=== PATIENT | male | born 1975 | race Two or more races ===

== ENCOUNTER 2024-11-18 08:10 | Inpatient (IN) | payer OTHER, SELFPAY ==
[2024-11-11 18:06] VITALS: BP 161/99
[2024-11-11 18:34] LABS: Hematocrit 42.5 % (39.0-52.0); Hemoglobin 15.2 g/dL (13.0-18.0); Mean Corp Hgb Conc. 35.8 g/dL (33.0-37.0); Mean Corpuscular Volume 85.7 fL (80.0-94.0); Nucleated Red Blood Cells % 0 % (-); Platelet Count 315 10^3/uL (130-400); Red Cell Dist. Width 13.1 % (11.5-14.5)
[2024-11-11 18:44] LABS: APTT 28.0 Sec (23.4-35.0); INR 0.95; PT 13.1 Sec (11.4-14.6)
[2024-11-11 18:48] LABS: ALT (SGPT) 98 U/L (0-50); AST (SGOT) 52 U/L (17-59); Albumin 5.3 g/dl (3.5-5.0); Alkaline Phosphatase 72 U/L (38-126); Blood Urea Nitrogen 19 mg/dl (9-20); Calcium 9.9 mg/dl (8.4-10.2); Carbon Dioxide 25 mmol/L (22-30); Chloride 106 mmol/L (98-107); Glucose 262 mg/dl (70-99); Potassium 4.1 mmol/L (3.5-5.1); Sodium 138 mmol/L (135-145); Total Protein 8.0 g/dl (6.3-8.2); eGFR > 60.00
[2024-11-11 18:59] LABS: Troponin I < 0.012 ng/ml
[2024-11-11 21:47] VITALS: BMI 35.2
--- NOTE | 2024-11-11 22:16 | ED.GENMED ---
History of Present Illness
General
Chief Complaint: Weakness
Source: patient and family
Time Seen by Provider: 11/11/24 21:56
History of Present Illness
History of Present Illness:
49-year-old male presents emergency department with complaints of numbness in his legs associated with bilateral leg weakness. Patient had a injection in the coccyx area at 9 AM today. He felt generally well and went home. However, by 4 PM he
began to develop these complaints which persisted here. He states that he now needs assistance to walk because of his legs feeling heavy and numb. He denies fever, chills, vomiting. He did have mild nausea. Patient denies any other complaints
such as incontinence, chest pain, shortness of breath, abdominal pain, headache, or other complaints. Patient suffered a work injury in late June resulting in injury to both his tailbone and lumbar spine. He states that since this injury and
particularly since a lumbar injection in early September he has residual numbness in the lateral aspect of his left leg as well as the anterior right thigh. The numbness today appears to be more diffuse in bilateral lower extremities and sometimes feels
like 'fire'
Past History
Past History
ED Past Medical History: HTN and Hypercholesterolemia
ED Past Surgical History: Orthopedic
Social History
Tobacco: Former smoker
Alcohol: Occasional
Drug: None
Personal:
Living: with family
Employment: Employed
Phy Exam
Physical Exam
Physical Exam:
GENERAL: Alert , in no apparent distress
EYE: pupils equal and reactive
NECK: Supple, no significant adenopathy.
ENT: o/p clr, mmm.
CARDIAC: Regular rate and rhythm .
LUNGS: Clear breath sounds bilaterally, no acute respiratory distress, no wheezes/rales/rhonchi
ABDOMEN: Soft, without focal tenderness, no r/g, no cvat
NEUROLOGICAL: Alert and oriented, sensation intact to light touch, decreased motor strength bilateral lower extremities, normal patellar reflexes, cranial nerves II through XII intact, speech clear.
SKIN: Warm and dry, skin intact.
MUSCULOSKELETAL: No edema, well perfused.
PSYCH: Normal and appropriate interaction.
Course
Orders/Labs/Results
Orders:
Orders
11/11/24 18:14
Electrocardiogram (*1) Urgent
Reason for Study: Other
Other Reason for Exam: Possible Stroke
EKG- Treatment ONCE
11/11/24 18:26
Complete Blood Count/With Diff Urgent
Comprehensive Metabolic Panel Urgent
PTT Urgent
Prothrombin Time Urgent
Troponin I Urgent
Abnormal Lab Results
11/11/24
18:26
Abs Immat Gran (auto) 0.1 H 10^3/uL
(0-0.05)
Absolute Neuts (auto) 8.1 H 10^3/uL
(1.4-6.5)
Neutrophils % 84.6 H %
(42.2-75.2)
Lymphocytes % 12.8 L %
(20.5-51.1)
Glucose 262 H mg/dl
(70-99)
ALT 98 H U/L
(0-50)
Albumin 5.3 H g/dl
(3.5-5.0)
11/11/24 18:26
11/11/24 18:26
Vital Signs
Initial and Last Documented VS:
Initial Vital Signs
Temp Pulse Resp BP Pulse Ox
98.2 F 94 16 161/99 92
11/11/24 18:06 11/11/24 18:06 11/11/24 18:06 11/11/24 18:06 11/11/24 18:06
Last Documented Vital Signs
Temp Pulse Resp BP Pulse Ox
98.2 F 86 18 164/90 94
11/11/24 18:06 11/11/24 23:20 11/11/24 23:20 11/11/24 23:20 11/11/24 23:20
*Pulse Oximetry
SaO2: 92
Oxygen Mode of Delivery: Room air
Update Note
Update Note:
Patient presents to the Emergency Department with __numbness and weakness of legs post procedure
Number and Complexity of Problems Addressed at the Encounter
� Chronic conditions affecting care:
� Acute Exacerbation and/or Progression of Chronic Illness:
� Differential Diagnosis includes: But not limited to injection related symptoms, disc herniation, etc.
Amount and/or Complexity of Data to be Reviewed and Analyzed
� I performed an independent evaluation of and my interpretation is:
EKG:
CT:
Xrays:
Laboratory Studies:
Other:
� Review of other/old records reveals:
� Clinical information was obtained by an independent historian: Call placed to patient's surgeon Dr. Mcmanus, aware of history and physical etc. here. He states that he did a sacral coccygeal injection of lidocaine and a half
or percent of Marcaine associated with steroid. He does not suspect that he injected in or near the lumbar area. He is reassured given patient does not have bowel or bladder incontinence, and thinks based on history physical etc. that complication
from injection such as hematoma extremely unlikely, and suspects that symptoms will resolve when meds 'wear off'.
� Prescriptions/Medications Considered but not given:
� Further testing considered but not performed:
Risk of Complications and/or Morbidity or Mortality of Patient Management
� Social determinants of health affecting care:
� Discussion with other providers (PCP, Hospitalists, Consultants, etc):
� Escalation of care including admission/observation vs risk of discharge considered: 11:10 PM patient overall well-appearing. He again denies any 'red flag' signs or symptoms that would suggest impending spinal cord injury,
cauda equina, etc. However, given patient's difficulty standing or walking due to the numbness and heaviness that he is experiencing, recommendation is observation overnight, neurochecks, potential MR in the morning. It is still somewhat unclear
because of patient's symptoms and further workup likely warranted in AM.
ED Attending Note
-
Portions of this chart may have been created with voice recognition software.� Occasional wrong word or��sound alike� substitutions may have occurred due to the inherent limitations of voice recognition software.
Discharge Plan
Departure
Patient Disposition: Admit
Date of Disposition: 11/11/24
Time of Disposition: 23:33
Admit to: Med/Surg
Presentation/result/management discussed w/ accepting MD/DO: Hospitalist
Condition: Good
Discharge Problem:
Weakness
Referrals:
Jane Brothers DO [Family Provider]
Interventions
Interventions:
*Risk Screen - Suicide Last Done: 11/11/24 18:06
*Neglect/Abuse Screening Last Done: 11/11/24 18:06
ED- Cardiac Assessment Last Done: 11/11/24 21:47
ED- Neurological Assessment Last Done: 11/11/24 21:47
ED- Pulmonary Assessment Last Done: 11/11/24 21:47
Discharge Date and Time
Print Language: SWEDISH
[2024-11-11 23:20] VITALS: BP 164/90
--- NOTE | 2024-11-12 | HPS.HSE ---
Family Physician
-
Family Physician: Jane Brothers
Chief Complaint
-
Bilateral lower extremity weakness
History of Present Illness
This is a 49-year-old with past medical history significant for hypertension, hyperlipidemia, obesity, recent traumatic episode toe walk with resultant coccygeal fracture/dislocation as well as lumbar spine herniation who presents to the emergency
department with bilateral lower extremity weakness after coccygeal injection.
Patient had a fall and injury at work in june. Evaluation showed coccygeal fracture/dislocation on x-ray in July 22. He also had herniated disc in the L4-L5 region. Patient reported that he had an MRI in August 16 and had follow-up with pain
specialist. Patient reported that he has previously had a injection of the lower lumbar spine L4-L5 several weeks ago for pain and paresthesias going down the left lower extremity. He had planned injection of the coccygeal spine today. Patient
reported that prior to the procedure he had no weakness in his lower extremity. He has pain in this sacral and coccygeal region. He denies paresthesias in his lower extremities.
Patient reported that the procedure was complicated because he was told that the cannula that was targeted was not injected due to the anatomy and injection was placed in the general area. Patient started having symptoms several hours after
returning home (4 PM). Reports initially had some slurred speech and difficulty getting out his words. This resolved around 7 PM. At the same time he reports nausea but no vomiting. He reports numbness and weakness in his bilateral lower
extremity and is now unable to walk. The numbness today appears to be more diffuse in bilateral lower extremities and sometimes feels like 'fire'
He however has had no strength in his bilateral lower extremity. He reports paresthesias with [id number] as well as painful sensation radiating up his legs bilaterally. Denies any bladder or bowel incontinence. Denies any erythema or
swelling in his lower sacral region.
In the Emergency Department he was afebrile, blood pressure was 160/90 with a pulse of 86 and was satting 94% on room air. ECG showed sinus rhythm at a rate of [address] or T wave changes.
CBC was unremarkable. Electrolytes were all within the normal range except for glucose of 262. BUN and creatinine were normal.
Medical History
Past Medical History
Past Medical History: Reports HTN and Hypercholesterolemia
Past Surgical History: Reports Orthopedic (Cervical spine fusion)
Social History
Tobacco: Former Smoker
Alcohol: None
Drug: None
Personal:
Living: With Family
Employment: Employed
Family History
Family History: Not pertinent
Allergies / Home Medications
Allergies reflects when Allergies were last updated in [facility].
Home Medications with original date entered in [facility]
Allergy/Medication List:
Allergies
Allergy/AdvReac Type Severity Reaction Status Date / Time
silk Allergy Rash Verified 11/11/24 18:06
Gabapentin 300 mg tablet, 300 mg p.o. twice daily
Amlodipine 10 mg tablet, 10 mg p.o. daily
Chlorthalidone 25 mg tablet, 25 mg p.o. daily
Losartan 100 mg tablet, 100 mg p.o. daily
Review of Systems
-
Constitutional: Reports No Symptoms
EENT: Reports No Symptoms
Respiratory: Reports No Symptoms
Cardiac: Reports No Symptoms
Abdomen/GI: Reports No Symptoms
: Reports No Symptoms
Musculoskeletal: Reports No Symptoms
Skin: Reports No Symptoms
Neurological: Reports Weakness and Numbness
Endocrine: Reports No Symptoms
Hematologic/Lymphatic: Reports No Symptoms
Psych: Reports No Symptoms
Physical Exam
Vital Signs
Vital Signs
Temp Pulse Resp BP Pulse Ox
98.2 F 86 18 164/90 94
11/11/24 18:06 11/11/24 23:20 11/11/24 23:20 11/11/24 23:20 11/11/24 23:20
Physical Exam
General: Well Developed, Well Nourished and No Apparent Distress
HEENT: NormoCephalic, Moist mucous membranes and Atraumatic
Respiratory: Clear
Cardiac: S1/S2 and Regular Rhythm; No Murmur or Rub
GI: Soft, Non Tender, Non Distended and Normal Bowel Sounds; No Organomegaly
Rectal: Deferred by Provider
Musculoskeletal: No Clubbing, No Cyanosis and No Edema
Skin: No Rash
Neuro: AO x 3, Cranial Nerves Intact and Other (sensation intact to light touch, decreased motor strength bilateral lower extremities, normal patellar reflexes, cranial nerves II through XII intact, speech clear.)
Hematologic/Lymphatic: No Lymphadenopathy
Psych: Anxious
Laboratory Results
-
11/11/24 18:
11/11/24 18:
Laboratory Results
PT 13.1 Sec (11.4-14.6) 11/11/24 18:
INR 0.95 11/11/24 18:
APTT 28.0 Sec (23.4-35.0) 11/11/24 18:
Total Bilirubin 0.6 mg/dl (0.2-1.3) 11/11/24 18:
AST 52 U/L (17-59) 11/11/24 18:
ALT 98 U/L (0-50) H 11/11/24 18:26
Alkaline Phosphatase 72 U/L (38-126) 11/11/24 18:
Troponin I < 0.012 ng/ml 11/11/24 18:26
Data Reviewed
-
Lab Data: Labs Reviewed by me
Old Records: Reviewed
Impression/Plan
-
IMPRESSION:
49-year-old with recent lower spine injury involving the lumbar spine as well as the tailbone with resultant to level and dislocation/fracture who presents to the emergency department with bilateral lower extremity weakness has left undergoing
injection of lidocaine and Marcaine injected right into the coccyx coccyx/gluteal area, not near the lumbar area. Patient became aware of symptoms of numbness and weakness several hours after injection at around 4 PM. On examination he does have
decreased sensation in the bilateral lower extremity, patellar reflexes are intact. S strength is diminished from the hips down to the toes bilaterally. Labs unremarkable. No other focal deficits. Patient has no bladder or bowel incontinence.
PLAN:
Bilateral lower extremity weakness and parasthesias s/p injection.
- admit to med/surg
- suspect secondary to spinal injection, no subsequent trauma reported.
- neurochecks q 6
- per discussion with Dr. Preston ([facility]), give time for injection to wear off
- if no improvement in 12 to 24 hours will get MRI
- PT evaluation
HTN
- continue home losartan, chlorthalidone and losartan
DVT PPX - lovenox sq
Code status - Full code
[2024-11-12 02:00] VITALS: BP 144/95; BMI 34.7
--- NOTE | 2024-11-12 03:47 | TRANSFER ---
Received pt from ED via stretcher at 0200 dx post procedure complication. Pt was x2 assist from stretcher to bed. Pt reports no pain, but stated B/L legs felt weird, further described as numbness/tingling/burning. Pt refused need for PRN pain
medication. VS WNL. Call lee within reach, be in lowest position.
--- NOTE | 2024-11-12 04:04 | PTCARENOTE ---
Pt refused CPAP for this evening. Care ongoing.
[2024-11-12 07:18] VITALS: BP 147/84
[2024-11-12 07:29] LABS: Hematocrit 40.6 % (39.0-52.0); Hemoglobin 14.4 g/dL (13.0-18.0); Mean Corp Hgb Conc. 35.5 g/dL (33.0-37.0); Mean Corpuscular Volume 85.7 fL (80.0-94.0); Platelet Count 318 10^3/uL (130-400); Red Cell Dist. Width 13.3 % (11.5-14.5)
[2024-11-12] MEDS: COZAAR 100 MG PO (07:41)
[2024-11-12] MEDS: NORVASC 10 MG PO (07:41)
[2024-11-12] MEDS: NEURONTIN 300 MG PO ×2 (07:41→19:55)
[2024-11-12 07:51] LABS: Blood Urea Nitrogen 19 mg/dl (9-20); Calcium 9.7 mg/dl (8.4-10.2); Carbon Dioxide 24 mmol/L (22-30); Chloride 106 mmol/L (98-107); Estimated Creatinine Clearance > 125 ml/min; Glucose 134 mg/dl (70-99); HDL Cholesterol 49 mg/dl; LDL Cholesterol, Calculated 127 mg/dl; Potassium 3.7 mmol/L (3.5-5.1); Sodium 140 mmol/L (135-145); Very Low Density Lipoprotein 19 mg/dl (0-30); eGFR > 60.00
--- NOTE | 2024-11-12 10:46 | CM ---
Reviewed the chart notes and spoke with the patient and spouse at the bedside. The patient is admitted under observational status. The observation letter was provided and explained. The patient had no questions with regards to the letter.
The patient resides with his spouse and children in a bi-level home with six steps to enter. The patient reports on DME is CPAP. The patient reports no VN or SNF in the past. The patient confirmed his pharmacy of choice is the [facility] [address]
continues to be available to patient/family and is monitoring medical plan for needs at discharge.
Plan: Discharge to home when medically stable. No needs anticipated at this time.
[2024-11-12 11:26] LABS: Glycohemoglobin (HgbA1c) 6.0 % (4.0-5.6)
--- NOTE | 2024-11-12 11:27 | W.PN.HOSP.TC ---
Today's Communication/Plan
-
monitor vitals
see plan
Check MRI lumbar spine
Pain control
PT evaluation
Discussed with spouse at bedside
Nonbillable note
Assessment / Plan
Assessment / Plan
General: Well Developed, Well Nourished and No Apparent Distress
HEENT: NormoCephalic, Moist mucous membranes and Atraumatic
Respiratory: Clear
Cardiac: S1/S2 and Regular Rhythm; No Murmur or Rub
GI: Soft, Non Tender, Non Distended and Normal Bowel Sounds
Musculoskeletal:No Edema
Skin: No Rash
Neuro: AO x 3, Cranial Nerves Intact and Other (sensation intact to touch, decreased motor strength bilateral lower extremities, speech clear.)
Psych: Anxious
IMPRESSION:
49-year-old with recent lower spine injury involving the lumbar spine as well as the tailbone with resultant to level and dislocation/fracture who presents to the emergency department with bilateral lower extremity weakness has left undergoing
injection of lidocaine and Marcaine injected right into the coccyx coccyx/gluteal area, not near the lumbar area. Patient became aware of symptoms of numbness and weakness several hours after injection at around 4 PM.
PLAN:
Bilateral lower extremity weakness and paraesthesias s/p injection
History of multiple disc herniation and posterior displacement of the tip of the coccyx
Still has significant weakness. He needs help to lift his lower extremity against gravity. Does have sensation. Per patient [id number] are improving
Given profound weakness we will check MRI
- suspect secondary to spinal injection, no subsequent trauma reported.
- neurochecks q 6
- per discussion with Dr. Mcmanus ([facility]) on admission, he wanted to give time for injection to wear off however check MRI if no improvement in 12-24-hour
- PT evaluation
Leukocytosis likely secondary to injection, stress response
Continue to monitor
HTN
- continue home losartan, chlorthalidone and losartan
Hyperlipidemia
DVT PPX - lovenox sq
Code status - Full code
Anticipated Discharge: Within 24 hours
Subjective/Interval History
-
Date of Service: November 12, 2024
Does have weakness
Objective Data
-
Labs:
Laboratory Results
11/12/24
06:36
WBC 14.2 H
Hgb 14.4
Hct 40.6
Plt Count 318
Sodium 140
Potassium 3.7
Chloride 106
Carbon Dioxide 24
BUN 19
Creatinine 0.7
Glucose 134 H
Calcium 9.7
Vital Signs:
Vital Signs
Temp Pulse Resp BP Pulse Ox
98.2 F 84 17 147/84 96
11/12/24 07:18 11/12/24 07:41 11/12/24 07:18 11/12/24 07:41 11/12/24 07:18
I&O
11/11/24 11/12/24 11/13/24
06:59 06:59 06:59
Intake Total 480 / 480
Output Total 425 / 425
Balance 55 / 55
[2024-11-12 15:12] VITALS: BP 157/97
[2024-11-12] MEDS: TORADOL 10 MG IV (15:52)
[2024-11-12] MEDS: TYLENOL 650 MG PO (15:53)
[2024-11-12] MEDS: VALIUM 2 MG PO ×2 (15:54→19:55)
[2024-11-12 16:31] VITALS: BP 176/117; PULSE 99
[2024-11-12 23:52] VITALS: BP 145/90
[2024-11-13 05:27] LABS: Hematocrit 40.1 % (39.0-52.0); Hemoglobin 14.1 g/dL (13.0-18.0); Mean Corp Hgb Conc. 35.2 g/dL (33.0-37.0); Mean Corpuscular Volume 86.2 fL (80.0-94.0); Nucleated Red Blood Cells % 0 % (-); Platelet Count 278 10^3/uL (130-400); Red Cell Dist. Width 13.3 % (11.5-14.5)
[2024-11-13 05:49] LABS: ALT (SGPT) 74 U/L (0-50); AST (SGOT) 33 U/L (17-59); Albumin 4.3 g/dl (3.5-5.0); Alkaline Phosphatase 49 U/L (38-126); Blood Urea Nitrogen 22 mg/dl (9-20); Calcium 9.2 mg/dl (8.4-10.2); Carbon Dioxide 26 mmol/L (22-30); Chloride 108 mmol/L (98-107); Estimated Creatinine Clearance > 125 ml/min; Glucose 118 mg/dl (70-99); Potassium 3.7 mmol/L (3.5-5.1); Sodium 140 mmol/L (135-145); Total Protein 6.7 g/dl (6.3-8.2); eGFR > 60.00
[2024-11-13 07:45] VITALS: BP 139/83
[2024-11-13] MEDS: VALIUM 2 MG PO ×2 (10:42→19:37)
[2024-11-13] MEDS: COZAAR 100 MG PO (10:42)
[2024-11-13] MEDS: NEURONTIN 300 MG PO ×2 (10:42→19:37)
[2024-11-13] MEDS: NORVASC 10 MG PO (10:43)
--- NOTE | 2024-11-13 11:53 | W.PN.HOSP.TC ---
Today's Communication/Plan
-
Monitor vitals
See plan
Patient appears to be improving, PT to reevaluate today. Patient really wants to go home
Continue with Valium
Pain control
Assessment / Plan
Assessment / Plan
General: Well Developed, Well Nourished and No Apparent Distress
HEENT: NormoCephalic, Moist mucous membranes and Atraumatic
Respiratory: Clear
Cardiac: S1/S2 and Regular Rhythm; No Murmur or Rub
GI: Soft, Non Tender, Non Distended and Normal Bowel Sounds
Musculoskeletal:No Edema
Skin: No Rash
Neuro: AO x 3, Cranial Nerves Intact and Other (sensation intact to touch, decreased motor strength bilateral lower extremities (improving), speech clear.)
Psych: Anxious
IMPRESSION:
49-year-old with recent lower spine injury involving the lumbar spine as well as the tailbone with resultant to level and dislocation/fracture who presents to the emergency department with bilateral lower extremity weakness has left undergoing
injection of lidocaine and Marcaine injected right into the coccyx coccyx/gluteal area, not near the lumbar area. Patient became aware of symptoms of numbness and weakness several hours after injection at around 4 PM.
PLAN:
Bilateral lower extremity weakness and paraesthesias s/p injection
History of multiple disc herniation and posterior displacement of the tip of the coccyx
Weakness has been improving, now able to move his lower extremity
PT yesterday recommended acute rehab, PT to reevaluate today
MRI lumbar showed chronic degenerative changes of the lumbar spine with degenerative disc disease with multilevel disc bulges/disc protrusion and facet arthrosis.
- suspect secondary to spinal injection, no subsequent trauma reported.
-Follows up with Dr. Mcmanus ([facility]) on admission
valium
Leukocytosis likely secondary to injection, stress response
Continue to monitor, improving
HTN
- continue home losartan, chlorthalidone and losartan
Hyperlipidemia
DVT PPX - lovenox sq
Code status - Full code
Anticipated Discharge: Within 24 hours
Subjective/Interval History
-
Date of Service: November 13, 2024
feeling better
Objective Data
-
Labs:
Laboratory Results
11/13/24
05:08
WBC 11.2 H
Hgb 14.1
Hct 40.1
Plt Count 278
Sodium 140
Potassium 3.7
Chloride 108 H
Carbon Dioxide 26
BUN 22 H
Creatinine 0.8
Glucose 118 H
Calcium 9.2
Total Bilirubin 0.5
AST 33
ALT 74 H
Alkaline Phosphatase 49
Vital Signs:
Vital Signs
Temp Pulse Resp BP Pulse Ox
98.4 F 67 16 139/83 95
11/13/24 07:45 11/13/24 07:45 11/13/24 07:45 11/13/24 07:45 11/13/24 07:45
I&O
11/12/24 11/13/24 11/14/24
06:59 06:59 06:59
Intake Total 480 / 480 760 / 760
Output Total 425 / 425 750 / 750 550 / 550
Balance 55 / 55 -750 / -750 210 / 210
[2024-11-13 15:16] VITALS: BP 131/77
--- NOTE | 2024-11-13 19:25 | PTCARENOTE ---
pt will go to SNF for rehab based on PT assessment today. Did notify case management.
[2024-11-13 23:27] VITALS: BP 130/89
[2024-11-14 06:30] LABS: Hematocrit 39.7 % (39.0-52.0); Hemoglobin 14.0 g/dL (13.0-18.0); Mean Corp Hgb Conc. 35.3 g/dL (33.0-37.0); Mean Corpuscular Volume 85.4 fL (80.0-94.0); Nucleated Red Blood Cells % 0 % (-); Platelet Count 274 10^3/uL (130-400); Red Cell Dist. Width 13.2 % (11.5-14.5)
[2024-11-14 06:53] LABS: ALT (SGPT) 78 U/L (0-50); AST (SGOT) 36 U/L (17-59); Albumin 4.2 g/dl (3.5-5.0); Alkaline Phosphatase 54 U/L (38-126); Blood Urea Nitrogen 18 mg/dl (9-20); Calcium 8.9 mg/dl (8.4-10.2); Carbon Dioxide 25 mmol/L (22-30); Chloride 106 mmol/L (98-107); Estimated Creatinine Clearance > 125 ml/min; Glucose 101 mg/dl (70-99); Potassium 3.6 mmol/L (3.5-5.1); Sodium 140 mmol/L (135-145); Total Protein 6.5 g/dl (6.3-8.2); eGFR > 60.00
[2024-11-14 07:45] VITALS: BP 125/81
[2024-11-14] MEDS: COZAAR 100 MG PO (08:17)
[2024-11-14] MEDS: NEURONTIN 300 MG PO ×2 (08:18→20:40)
[2024-11-14] MEDS: VALIUM 2 MG PO ×2 (08:19→20:40)
[2024-11-14] MEDS: NORVASC 10 MG PO (08:20)
--- NOTE | 2024-11-14 10:55 | W.PN.HOSP.TC ---
Today's Communication/Plan
-
Monitor vital signs see plan
PMNR consulted
Needs rehab
Continue with Valium
Symptoms appear to be improving
Assessment / Plan
Assessment / Plan
General: Well Developed, Well Nourished and No Apparent Distress
HEENT: NormoCephalic, Moist mucous membranes and Atraumatic
Respiratory: Clear
Cardiac: S1/S2 and Regular Rhythm; No Murmur or Rub
GI: Soft, Non Tender, Non Distended and Normal Bowel Sounds
Musculoskeletal:No Edema
Skin: No Rash
Neuro: AO x 3, Cranial Nerves Intact and Other (sensation intact to touch, decreased motor strength bilateral lower extremities (improving), speech clear.)
Psych: Anxious
IMPRESSION:
49-year-old with recent lower spine injury involving the lumbar spine as well as the tailbone with resultant to level and dislocation/fracture who presents to the emergency department with bilateral lower extremity weakness has left undergoing
injection of lidocaine and Marcaine injected right into the coccyx coccyx/gluteal area, not near the lumbar area. Patient became aware of symptoms of numbness and weakness several hours after injection at around 4 PM.
PLAN:
Bilateral lower extremity weakness and paraesthesias s/p injection
History of multiple disc herniation and posterior displacement of the tip of the coccyx
Weakness has been improving, now able to move his lower extremity
PT yesterday recommended acute rehab, for rehabilitation caseworker aware. [facility]
MRI lumbar showed chronic degenerative changes of the lumbar spine with degenerative disc disease with multilevel disc bulges/disc protrusion and facet arthrosis.
- suspect secondary to spinal injection, no subsequent trauma reported.
-Follows up with Dr. Mcmanus ([facility]) on admission. Please reach out to him tomorrow to see if there is anything else they can offer
valium BID
Leukocytosis likely secondary to injection, stress response
Continue to monitor, resolved
HTN
- continue home losartan, chlorthalidone and losartan
Hyperlipidemia
DVT PPX - lovenox sq
Code status - Full code
Anticipated Discharge: Within 24 hours
Subjective/Interval History
-
Date of Service: November 14, 2024
Patient denies nausea
Objective Data
-
Labs:
Laboratory Results
11/14/24
04:54
WBC 9.9
Hgb 14.0
Hct 39.7
Plt Count 274
Sodium 140
Potassium 3.6
Chloride 106
Carbon Dioxide 25
BUN 18
Creatinine 0.8
Glucose 101 H
Calcium 8.9
Total Bilirubin 0.4
AST 36
ALT 78 H
Alkaline Phosphatase 54
Vital Signs:
Vital Signs
Temp Pulse Resp BP Pulse Ox
98.6 F 78 16 125/81 97
11/14/24 07:45 11/14/24 07:45 11/14/24 07:45 11/14/24 07:45 11/14/24 07:45
I&O
11/13/24 11/14/24 11/15/24
06:59 06:59 06:59
Intake Total 2140 / 2140
Output Total 750 / 750 1150 / 1150
Balance -750 / -750 990 / 990
[2024-11-14 11:46] VITALS: BP 134/90; BP 144/96; PULSE 78
--- NOTE | 2024-11-14 11:55 | CM ---
Patient recommended for acute rehab. [employer] list provided to patient and . Patient says this is a Workers' Comp case.
[2024-11-14 15:51] VITALS: BP 148/91
[2024-11-14 23:00] VITALS: BP 123/75
[2024-11-15 07:02] LABS: Hematocrit 41.6 % (39.0-52.0); Hemoglobin 14.8 g/dL (13.0-18.0); Mean Corp Hgb Conc. 35.6 g/dL (33.0-37.0); Mean Corpuscular Volume 84.4 fL (80.0-94.0); Nucleated Red Blood Cells % 0 % (-); Platelet Count 267 10^3/uL (130-400); Red Cell Dist. Width 13.2 % (11.5-14.5)
[2024-11-15 07:27] LABS: ALT (SGPT) 90 U/L (0-50); AST (SGOT) 40 U/L (17-59); Albumin 4.3 g/dl (3.5-5.0); Alkaline Phosphatase 54 U/L (38-126); Blood Urea Nitrogen 17 mg/dl (9-20); Calcium 9.2 mg/dl (8.4-10.2); Carbon Dioxide 29 mmol/L (22-30); Chloride 104 mmol/L (98-107); Estimated Creatinine Clearance > 125 ml/min; Glucose 101 mg/dl (70-99); Potassium 3.8 mmol/L (3.5-5.1); Sodium 140 mmol/L (135-145); Total Protein 6.5 g/dl (6.3-8.2); eGFR > 60.00
[2024-11-15 07:40] VITALS: BP 143/83
--- NOTE | 2024-11-15 08:15 | W.PN.HOSP.TC ---
Today's Communication/Plan
-
medically cleared for discharge to rehab once bed available.
Assessment / Plan
Assessment / Plan
IMPRESSION:
49-year-old with recent lower spine injury involving the lumbar spine as well as the tailbone with resultant to level and dislocation/fracture who presents to the emergency department with bilateral lower extremity weakness has left undergoing
injection of lidocaine and Marcaine injected right into the coccyx coccyx/gluteal area, not near the lumbar area. Patient became aware of symptoms of numbness and weakness several hours after injection at around 4 PM.
MRI lumbar showed chronic degenerative changes of the lumbar spine with degenerative disc disease with multilevel disc bulges/disc protrusion and facet arthrosis.
Assessment/plan:
Bilateral lower extremity weakness and paraesthesias s/p injection
History of multiple disc herniation and posterior displacement of the tip of the coccyx
Weakness has been improving, now able to move his lower extremity
PT yesterday recommended acute rehab, for upper caser aware. Dr. [facility]
MRI lumbar showed chronic degenerative changes of the lumbar spine with degenerative disc disease with multilevel disc bulges/disc protrusion and facet arthrosis.
- suspect secondary to spinal injection, no subsequent trauma reported.
-Follows up with Dr. Mcmanus ([facility]) on admission. Please reach out to him tomorrow to see if there is anything else they can offer
valium BID
Leukocytosis likely secondary to injection, stress response
Continue to monitor, resolved
HTN
- continue home losartan, chlorthalidone and losartan
Hyperlipidemia
CODE STATUS: Full code
DVT prophylaxis: Lovenox
Diet: Regular diet.
Disposition: medically cleared for discharge
Communication: Discussed with in the phone.
Total time spent on today's encounter was 55 minutes which included time spent in counseling the patient/family regarding diagnosis and treatment plan as listed above, goals of care, and symptom management. Case was discussed with nursing staff,
specialists, and care coordinators/case management. All labs and imaging personally reviewed by me. Remainder the time spent in detailed review of previous records, lab data, imaging, and other medical provider documentation.
Anticipated Discharge: Today
Subjective/Interval History
-
Date of Service: November 15, 2024
Patient seen and examined at bedside, denies any chest pain or shortness of breath, no abdominal pain, no nausea, no vomiting, no diarrhea or constipation.
Still complaining of bilateral lower extremity weakness.
Pending PMNR ]consult.
Objective Data
-
Labs:
Laboratory Results
11/15/24
06:47
WBC 8.8
Hgb 14.8
Hct 41.6
Plt Count 267
Sodium 140
Potassium 3.8
Chloride 104
Carbon Dioxide 29
BUN 17
Creatinine 0.9
Glucose 101 H
Calcium 9.2
Total Bilirubin 0.6
AST 40
ALT 90 H
Alkaline Phosphatase 54
Vital Signs:
Vital Signs
Temp Pulse Resp BP Pulse Ox
97.9 F 82 17 123/75 96
11/14/24 23:00 11/14/24 23:00 11/14/24 23:00 11/14/24 23:00 11/14/24 23:00
I&O
11/14/24 11/15/24 11/16/24
06:59 06:59 06:59
Intake Total 2140 / 2140 1240 / 1240
Output Total 1150 / 1150
Balance 990 / 990 1240 / 1240
Physical Exam
-
General: Well Developed, Well Nourished, No Apparent Distress and Comfortable
HEENT: Normocephalic, Atraumatic, Moist Mucous Membranes, No Ptosis, PERRLA and Nose Appears Normal
Respiratory: Clear to Auscultation and Non Labored Respirations
Cardiac: Regular Rhythm and S1/S2
Breast: Deferred by me
GI: Soft, Nontender, Nondistended and Normal Bowel Sounds
Genito-urinary: No Costovertebral Tender
Musculoskeletal: No Clubbing, No Cyanosis and No Edema
Skin: Warm
Neuro: Awake, Alert, Oriented, AO x 3 and Other (Left lower extremity weakness.)
Psych: Calm
Data Reviewed
-
Diagnostic Radiology: Image personally visualized and interpreted and Report Reviewed by me
CT Scan: Image personally visualized and interpreted and Report Reviewed by me
Ultrasound: Image personally visualized and interpreted and Report Reviewed by me
MRI: Image personally visualized and interpreted and Report Reviewed by me
Medical Tests (Nuc Med, Echo etc): Image personally visualized and interpreted and Report Reviewed by me
Labs: Labs Reviewed by me
Old Records: Reviewed
[2024-11-15] MEDS: NORVASC 10 MG PO (09:33)
[2024-11-15] MEDS: VALIUM 2 MG PO ×2 (09:34→19:30)
[2024-11-15] MEDS: NEURONTIN 300 MG PO ×2 (09:34→19:30)
[2024-11-15] MEDS: COZAAR 100 MG PO (09:34)
--- NOTE | 2024-11-15 10:30 | CM ---
Reviewed the chart notes and spoke with the patient at the bedside. [employer] is his workers compensation insurance. PMR evaluation pending. Patient provided names for acute rehab. Order of preference: [facility], [facility], and [facility]. continues to
be available to patient/family and is monitoring medical plan for needs at discharge.
Plan: Discharge to [facility] Acute [facility] once medically stable, bed secured, and auth obtained.
[2024-11-15 15:45] VITALS: BP 133/84
--- NOTE | 2024-11-15 17:30 | CON.MD ---
Documented by User: Tessy Baer PA-C 11/15/24 19:31
Consultation - Medical
-
Referring Provider: Maxx Perez
Chief Complaint: Weakness, ambulatory dysfunction
History of Present Illness:�This is a 49-year-old with PMH for (hypertension, hyperlipidemia, obesity), recent traumatic episode of a fall with resultant coccygeal fracture/dislocation as well as lumbar spine herniation who presents to the emergency
department with bilateral lower extremity weakness after coccygeal injection.
Patient had a fall and injury at work in june. Evaluation showed coccygeal fracture/dislocation on x-ray in July 22. He also had herniated disc in the L4-L5 region. Patient reported that he had an MRI in August 16 and had follow-up with pain
specialist. Patient reported that he has previously had a injection of the lower lumbar spine L4-L5 several weeks ago for pain and paresthesias going down the left lower extremity. He had planned injection of the coccygeal spine today. Patient
reported that prior to the procedure he had no weakness in his lower extremity. He has pain in this sacral and coccygeal region. He denies paresthesias in his lower extremities.
Patient reported that the procedure was complicated because he was told that the cannula that was targeted was not injected due to the anatomy and injection was placed in the general area. Patient started having symptoms several hours after
returning home (4 PM). Reports initially had some slurred speech and difficulty getting out his words. This resolved around 7 PM. At the same time he reports nausea but no vomiting. He reports numbness and weakness in his bilateral lower
extremity and is now unable to walk. The numbness today appears to be more diffuse in bilateral lower extremities and sometimes feels like 'fire'
He however has had no strength in his bilateral lower extremity. He reports paresthesias with xgfm-rrn-gpsbsis as well as painful sensation radiating up his legs bilaterally. Denies any bladder or bowel incontinence. Denies any erythema or
swelling in his lower sacral region.
In the Emergency Department he was afebrile, blood pressure was 160/90 with a pulse of 86 and was sat 94% on room air. ECG showed sinus rhythm at a rate of [address] or T wave changes.
CBC was unremarkable. Electrolytes were all within the normal range except for glucose of 262. BUN and creatinine were normal.
Seen at bedside, patient reports improvement in bilateral legs weakness. Denies numbness and tingling at the moment nor lower back pain, but voices sacral/coccyx pain . Sitting exacerbate symptoms. Appetite is good and so is voiding. Denies chest
pain, sob, dizziness, lightheadedness, dysuria, nausea, vomiting, abdominal pain. 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 He reports that he is not able to return home because he will not be able to
maneuver the steps in his bilevel house.
Past Medical History:�hypertension, hyperlipidemia, obesity, lumbar disc herniation, sacral fracture, Left shoulder essential tremors when fatigued.
Procedure History:�cervical fusion, epidural injections
Family History:�Mom-Parkinson Disease, Dad- Heart Disease
�
Social History:�
Functional Level Premorbidly:�Independent with all activities�
Functional Level Currently:�Bed mobility- supervision, ikylokmym-xjynzgnfmsf-ahg assist, ambulated 25 feet x 2 RW- close supervision. Using upper extremities more to steady self with walker.
�
Tobacco:�Denies�
Alcohol:�Denies�
Drug use:�Denies�
�
Lives with:�Family
24-hour assistance available:�
Number of floors:�multi level
# steps to enter:�6+6
# steps to second floor:
Potential First floor set up:�
Driving:�yes
Occupation:�[employer]- on leave due to worker injury
�
�
Allergies:�
Allergy/AdvReac Type Severity Reaction Status Date / Time
silk Allergy Rash Verified 11/11/24 18:06
�
Review of Systems:�
Constitutional: (x) Normal _
Eye: (x) Normal _
Ear/Nose/Throat: (x) Normal _
Respiratory: (x) Normal _
Cardiovascular: (x) Normal _
Gastrointestinal: (x) Normal _
Genitourinary: (x) Normal _
Musculoskeletal: (x) abNormal _bilateral leg weakness, coccyx, sacral pain
Integumentary: (x) Normal _
Neurologic: (x) abNormal _essential tremors affecting left shoulder when fatigued
Psychiatric: (x) Normal _
Endocrine: (x) Normal _
Hematologic/Lymphatic: (x) Normal _
Allergic/Immunologic: (x) Normal _
Medications:�
Active Current Visit Medication List
Category Date Time Status
Acetaminophen [Tylenol] Med 11/12/24 02:01 Active
650 mg PO Q4HPRN PRN
Amlodipine [Norvasc] Med 11/12/24 08:00 Active
10 mg PO DAILY
Bisacodyl [Dulcolax] Med 11/12/24 02:01 Active
10 mg RECTAL [id number] PRN
Chlorthalidone [Hygroton] Med 11/12/24 08:00 Active
25 mg PO DAILY
Diazepam [Valium] Med 11/12/24 14:40 Active
2 mg PO BID
Docusate W/Senna [Senokot-S] Med 11/12/24 02:01 Active
1 tablet PO BIDPRN PRN
Enoxaparin Sodium [Lovenox] Med 11/12/24 18:00 Hold
40 mg SC QPM
Flush (0.9% Sodium Chloride) [Flush (Nss)] Med 11/12/24 03:00 Active
See Dose Instructions IV PER PROTOCOL
Gabapentin [Neurontin] Med 11/12/24 08:00 Active
300 mg PO BID
HYDROmorphone [Dilaudid] Med 11/12/24 02:01 Active
0.5 mg IV Q4HPRN PRN
Ketorolac [Toradol] Med 11/12/24 02:01 Active
10 mg IV Q6HPRN PRN
Losartan [Cozaar] Med 11/12/24 08:00 Active
100 mg PO DAILY
Ondansetron Injectable [Zofran] Med 11/12/24 02:01 Active
4 mg IV Q6HPRN PRN
Polyethylene Glycol Powder [Miralax] Med 11/12/24 02:01 Active
17 grams PO DAILYPRN PRN
�
Vitals:�
Temp Pulse Resp BP Pulse Ox
98.3 F 79 16 133/84 97
11/15/24 15:45 11/15/24 15:45 11/15/24 15:45 11/15/24 15:45 11/15/24 15:45
Height 6 ft 1 in
Actual Weight 119.3 kg
Body Mass Index (BMI) 34.7
�
Physical Exam:�
General Appearance/Observation: Well-developed, well-nourished individual in no apparent distress.�
Pain/Comfort Assessment: sacrum, weakness legs
Mood/Affect: Appropriate�
�
Integumentary/Operative Site:�
�� Pressure Ulcer Evaluation: absent over heels.�
��
�� Other Type of Wound: absent�
��
�
Eyes: Conjunctiva/Lids: normal���� Pupils: pupils equal round and reactive to light and Accommodation�
Ears/Nose/Throat: oral mucosa moist,� throat clear.������������ Lips/Teeth/Gums: normal�
Neck: No muscle spasm or tenderness�
Cardiovascular: Heart: regular, no murmur�
Pulses: dorsalis pedis NT
Respiratory: Respiratory Effort/Chest Expansion: normal������� Auscultation: Clear to auscultation bilaterally�
Gastrointestinal: abdomen not tender, no distension, normal abdominal bowel sounds
Genitourinary: No Chan�
Extremities:�Edema: None�Cyanosis: None�Trophic�changes: None
�
Neurology Exam:
Orientation: Alert, Oriented to self, Time, Place�
Memory: Intact for immediate medical concerns
Comprehension: Intact
Two step command: Intact
Naming: Intact
Cranial Nerves:
�� CNII:�Pupillary light reflex: Intact����Visual Field: Intact
�� CN III, IV, : Extraocular muscles: Intact�
CN V:�Facial Sensation�at�Forehead: Intact,�Maxilla: Intact,�Mandible: Intact
�� CN VII:�Facial movement: Symmetric
�� CN VIII:�Hearing: Normal
�� CN IX/X:�Speech & swallow: Normal,�Position of Uvula: Midline
�� CN XI:�Shoulder shrug: Symmetric
�� CN XII:�Tongue protrusion: Midline
Sensory:
�� Light touch: Intact in bilateral upper and lower extremities
��
Reflexes:
�� Biceps: 1/4 bilaterally
�� Brachioradialis: 1/4 bilaterally
�� Triceps: 1/4 bilaterally
�� Patellar: absent-right, trace-left
�� Achilles: absent-right, left ankle 2/4
�� Babinski: NT
Clonus: None
�� Jamil: Negative bilaterally�
Cerebellar: Dysmetria/Ataxia: NT�
Musculoskeletal:
Motor: (Manual muscle scale 0-5)�
Muscle SA EF WE EE FF FA HF KE DF EHL PF
Right� 5 5 5 5 5 4 4 4 4 4
Left 5 5 5 5 5 4 4 4 4 4
�
Tone: Normal in all extremities�
Range of Motion: Passively within normal limits in all extremities�
�
Lab Results:
Labs
WBC 8.8 10^3/uL (4.8-10.8) 11/15/24 06:47
RBC 4.93 10^6/uL (4.70-6.10) 11/15/24 06:47
Hgb 14.8 g/dL (13.0-18.0) 11/15/24 06:47
Hct 41.6 % (39.0-52.0) 11/15/24 06:47
MCV 84.4 fL (80.0-94.0) 11/15/24 06:47
MCH 30.0 pg (27.0-31.0) 11/15/24 06:47
MCHC 35.6 g/dL (33.0-37.0) 11/15/24 06:47
RDW 13.2 % (11.5-14.5) 11/15/24 06:47
Plt Count 267 10^3/uL (130-400) 11/15/24 06:47
MPV 8.7 fL (7.4-10.4) 11/15/24 06:47
Abs Immat Gran (auto) 0.1 10^3/uL (0-0.05) H 11/15/24 06:47
Absolute Neuts (auto) 4.8 10^3/uL (1.4-6.5) 11/15/24 06:47
Absolute Lymphs (auto) 2.9 10^3/uL (1.2-3.4) 11/15/24 06:47
Absolute Monos (auto) 0.7 10^3/uL (0.1-0.6) H 11/15/24 06:47
Absolute Eos (auto) 0.3 10^3/uL (0-0.7) 11/15/24 06:47
Absolute Basos (auto) 0.1 10^3/uL (0-0.2) 11/15/24 06:47
Immature Gran % 0.8 % (0-0.5) H 11/15/24 06:47
Neutrophils % 54.2 % (42.2-75.2) 11/15/24 06:47
Lymphocytes % 33.0 % (20.5-51.1) 11/15/24 06:47
Monocytes % 7.5 % (1.7-9.3) 11/15/24 06:47
Eosinophils % 3.8 % (0-6) 11/15/24 06:47
Basophils % 0.7 % (0-2) 11/15/24 06:47
Nucleated RBC % 0 % (-) 11/15/24 06:47
PT 13.1 Sec (11.4-14.6) 11/11/24 18:26
INR 0.95 11/11/24 18:26
APTT 28.0 Sec (23.4-35.0) 11/11/24 18:26
Sodium 140 mmol/L (135-145) 11/15/24 06:47
Potassium 3.8 mmol/L (3.5-5.1) 11/15/24 06:47
Chloride 104 mmol/L (98-107) 11/15/24 06:47
Carbon Dioxide 29 mmol/L (22-30) 11/15/24 06:47
BUN 17 mg/dl (9-20) 11/15/24 06:47
Creatinine 0.9 mg/dL (0.7-1.3) 11/15/24 06:47
Estimated Creat Clear > 125 ml/min 11/15/24 06:47
eGFR > 60.00 11/15/24 06:47
Glucose 101 mg/dl (70-99) H 11/15/24 06:47
Hemoglobin A1c 6.0 % (4.0-5.6) H 11/12/24 06:36
Calcium 9.2 mg/dl (8.4-10.2) 11/15/24 06:47
Total Bilirubin 0.6 mg/dl (0.2-1.3) 11/15/24 06:47
AST 40 U/L (17-59) 11/15/24 06:47
ALT 90 U/L (0-50) H 11/15/24 06:47
Alkaline Phosphatase 54 U/L (38-126) 11/15/24 06:47
Creatine Kinase 85 U/L (55-170) 11/13/24 05:08
Troponin I < 0.012 ng/ml 11/11/24 18:26
Total Protein 6.5 g/dl (6.3-8.2) 11/15/24 06:47
Albumin 4.3 g/dl (3.5-5.0) 11/15/24 06:47
Triglycerides 97 mg/dl (10-149) 11/12/24 06:36
Total Cholesterol 195 mg/dl (50-199) 11/12/24 06:36
LDL Cholesterol, Calc 127 mg/dl 11/12/24 06:36
VLDL Cholesterol, Calc 19 mg/dl (0-30) 11/12/24 06:36
HDL Cholesterol 49 mg/dl 11/12/24 06:36
�
Diagnostic Results:�as per HPI�
Lumbar MRI - 11/12/24
�Chronic degenerative changes of the lumbar spine including degenerative disc disease with multilevel disc bulges/disc protrusions and facet arthrosis.
Mild spinal canal stenosis at L2-L3 and L3-L4.
Moderate to severe left neuroforaminal stenosis at L4-L5 secondary to a left foraminal disc protrusion.
Moderate left lateral recess stenosis and moderate left neuroforaminal stenosis at L5-S1 secondary to a left posterior disc protrusion.
Assessment: 49 year old male with Bilateral leg weakness post sacral/coccyx injection associated with ambulatory and gait dysfunction.
Plan�
PM&R�PT/OT to increase independence with ADLs, improve balance, coordination, endurance, strength, mobility, community reintegration, decreased burden of care on others and family education.�
Ambulatory Dysfunction/Weakness/lumbar disc herniation/Sacral Fx:Pain management, PT/OT.
HTN: Losartan 100mg, Amlodipine 10mg qd, Chlorthalidone 25mg qd.�
HLD: Not on medicine���
Psych: Psychology consult.� Monitor mood, adjust medications as needed.�
Skin: monitor for pressure sores/rashes/lesions.�
Pain: acetaminophen, IV Dilaudid as needed.�Gabapentin 300mg tid, Valium 2mg
Elevated: ALT: 90 - monitor Tylenol consumption
Bowel: Colace and Senna, PRN bisacodyl.�Miralax
Bladder: Time void, PVRs, PRN straight cath.�
GI Prophylaxis: would add Pantoprazole�
DVT Prophylaxis: Lovenox sc�
Pulmonary: Incentive spirometry�
Safety: Continue to reinforce assistance with all transfers.�
Code Status:� Full code
Dispo�(date/plan/equipment needs): Home with family care.� Social history reviewed.�
�
Functional and Medical Goals:�Modified Independent with ADL�s, ambulation, transfers�
�
SUMMARY
Things that must be addressed in Hospital prior to discharge:�
��� Please consult OT.
��� Patient must be stable on oral pain medications.
�
Discharge Destination:�Would benefit from Acute inpatient rehabilitation to increase independence with ADLs, improve balance, coordination, endurance, strength, mobility, community reintegration, decreased burden of care on others and family
education.�
�
Thank you for allowing me to care for your patient. Please contact me with any questions or concerns.
�
�

Documented by User: Baldemar David MD 11/16/24 08:22
Consultation - Medical
-
Referring Provider: Dr. Marques Fernando
Chief Complaint: Weakness, ambulatory dysfunction
History of Present Illness:�49-year-old M with PMH (hypertension, hyperlipidemia, obesity), recent traumatic episode of a fall with resultant coccygeal fracture/dislocation as well as lumbar spine herniation who presents to the emergency department
with bilateral lower extremity weakness after coccygeal injection.
Patient had a fall and injury at work in June. Evaluation showed coccygeal fracture/dislocation on x-ray in July 22. He also had herniated disc in the L4-L5 region. Patient reported that he had an MRI in August 16 and had follow-up with pain
specialist. Patient reported that he has previously had a injection of the lower lumbar spine L4-L5 several weeks ago for pain and paresthesias going down the left lower extremity. He had planned injection of the coccygeal spine 11/11/24. Patient
reported that prior to the procedure he had no weakness in his lower extremity. He has pain in this sacral and coccygeal region. He denies paresthesias in his lower extremities.
Patient reported that the procedure was complicated because he was told that the cannula that was targeted was not injected due to the anatomy and injection was placed in the general area. Patient started having symptoms several hours after
returning home (4 PM). Reports initially had some slurred speech and difficulty getting out his words. This resolved around 7 PM. At the same time he reports nausea but no vomiting. He reports numbness and weakness in his bilateral lower
extremity and is now unable to walk. The numbness became more diffuse in bilateral lower extremities and sometimes feels like 'fire'
Eventually he had no strength in his bilateral lower extremity. He reports paresthesias with ilaj-biz-wqgnikk as well as painful sensation radiating up his legs bilaterally. Denies any bladder or bowel incontinence. Denies any erythema or
swelling in his lower sacral region.
In the Emergency Department he was afebrile, blood pressure was 160/90 with a pulse of 86 and was sat 94% on room air. ECG showed sinus rhythm at a rate of [address] or T wave changes.
CBC was unremarkable. Electrolytes were all within the normal range except for glucose of 262. BUN and creatinine were normal.
Seen at bedside, patient reports improvement in bilateral legs weakness. Denies numbness and tingling at the moment nor lower back pain, but voices sacral/coccyx pain . Sitting exacerbate symptoms. Appetite is good and so is voiding. Denies chest
pain, sob, dizziness, lightheadedness, dysuria, nausea, vomiting, abdominal pain. 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 He reports that he is not able to return home because he will not be able to
maneuver the steps in his bilevel house.
Past Medical History:�hypertension, hyperlipidemia, obesity, lumbar disc herniation, sacral fracture, Left shoulder essential tremors when fatigued.
Procedure History:�cervical fusion, epidural injections
Family History:�Mom-Parkinson Disease, Dad- Heart Disease
�
Social History:�
Functional Level Premorbidly:�Independent with all activities�
Functional Level Currently:�Bed mobility- supervision, pxziucyov-zqjnsgpghkv-mnh assist, ambulated 25 feet x 2 RW- close supervision. Using upper extremities more to steady self with walker.
�
Tobacco:�Denies�
Alcohol:�Denies�
Drug use:�Denies�
�
Lives with:�Family
24-hour assistance available:�Yes
Number of floors:�multi level
# steps to enter:�6
# steps to second floor: 6
Potential First floor set up:�No
Driving:�yes
Occupation:�[employer]- on leave due to worker injury
�
�
Allergies:�
Allergy/AdvReac Type Severity Reaction Status Date / Time
silk Allergy Rash Verified 11/11/24 18:06
�
Review of Systems:�
Constitutional: (x) abNormal _tired
Eye: (x) Normal _
Ear/Nose/Throat: (x) Normal _
Respiratory: (x) Normal _
Cardiovascular: (x) Normal _
Gastrointestinal: (x) Normal _no incontinence, moving bowels
Genitourinary: (x) Normal _no incontinence, passing urine
Musculoskeletal: (x) abNormal _bilateral leg weakness, coccyx, sacral pain
Integumentary: (x) Normal _
Neurologic: (x) abNormal _essential tremors affecting left shoulder when fatigued
Psychiatric: (x) Normal _
Endocrine: (x) Normal _
Hematologic/Lymphatic: (x) Normal _
Allergic/Immunologic: (x) Normal _
Medications:�
Active Current Visit Medication List
Category Date Time Status
Acetaminophen [Tylenol] Med 11/12/24 02:01 Active
650 mg PO Q4HPRN PRN
Amlodipine [Norvasc] Med 11/12/24 08:00 Active
10 mg PO DAILY
Bisacodyl [Dulcolax] Med 11/12/24 02:01 Active
10 mg RECTAL [id number] PRN
Chlorthalidone [Hygroton] Med 11/12/24 08:00 Active
25 mg PO DAILY
Diazepam [Valium] Med 11/12/24 14:40 Active
2 mg PO BID
Docusate W/Senna [Senokot-S] Med 11/12/24 02:01 Active
1 tablet PO BIDPRN PRN
Enoxaparin Sodium [Lovenox] Med 11/12/24 18:00 Hold
40 mg SC QPM
Flush (0.9% Sodium Chloride) [Flush (Nss)] Med 11/12/24 03:00 Active
See Dose Instructions IV PER PROTOCOL
Gabapentin [Neurontin] Med 11/12/24 08:00 Active
300 mg PO BID
HYDROmorphone [Dilaudid] Med 11/12/24 02:01 Active
0.5 mg IV Q4HPRN PRN
Ketorolac [Toradol] Med 11/12/24 02:01 Active
10 mg IV Q6HPRN PRN
Losartan [Cozaar] Med 11/12/24 08:00 Active
100 mg PO DAILY
Ondansetron Injectable [Zofran] Med 11/12/24 02:01 Active
4 mg IV Q6HPRN PRN
Polyethylene Glycol Powder [Miralax] Med 11/12/24 02:01 Active
17 grams PO DAILYPRN PRN
�
Vitals:�
Temp Pulse Resp BP Pulse Ox
98.3 F 79 16 133/84 97
11/15/24 15:45 11/15/24 15:45 11/15/24 15:45 11/15/24 15:45 11/15/24 15:45
Height 6 ft 1 in
Actual Weight 119.3 kg
Body Mass Index (BMI) 34.7
�
Physical Exam:�
General Appearance/Observation: Well-developed, well-nourished male in no apparent distress.�
Pain/Comfort Assessment: sacrum, weakness legs
Mood/Affect: Appropriate�
�
Integumentary/Operative Site:�
�� Pressure Ulcer Evaluation: absent over heels.�
�
Eyes: Conjunctiva/Lids: normal���� Pupils: pupils equal round and reactive to light and Accommodation�
Ears/Nose/Throat: oral mucosa moist,� throat clear.������������ Lips/Teeth/Gums: normal�
Neck: No muscle spasm or tenderness�
Cardiovascular: Heart: regular, no murmur�
Pulses: dorsalis pedis 2+ bilaterally
Respiratory: Respiratory Effort/Chest Expansion: normal������� Auscultation: Clear to auscultation bilaterally�
Gastrointestinal: abdomen not tender, no distension, normal abdominal bowel sounds
Genitourinary: No Chan�
Extremities:�Edema: None�Cyanosis: None�Trophic�changes: None
�
Neurology Exam:
Orientation: Alert, Oriented to self, Time, Place�
Memory: Intact for immediate medical concerns
Comprehension: Intact
Two step command: Intact
Cranial Nerves:
�� CNII:�Pupillary light reflex: Intact����Visual Field: Intact
�� CN III, IV, : Extraocular muscles: Intact�
CN V:�Facial Sensation�at�Forehead: Intact,�Maxilla: Intact,�Mandible: Intact
�� CN VII:�Facial movement: Symmetric
�� CN VIII:�Hearing: Normal
�� CN IX/X:�Speech & swallow: Normal,�Position of Uvula: Midline
�� CN XI:�Shoulder shrug: Symmetric
�� CN XII:�Tongue protrusion: Midline
Sensory:
�� Light touch: Intact in bilateral upper and lower extremities
��
Reflexes:
�� Biceps: 2/4 bilaterally
�� Brachioradialis: 2/4 bilaterally
�� Triceps: 2/4 bilaterally
�� Patellar: absent-right, 2/4 left
�� Achilles: absent-right, left ankle 2/4
�� Babinski: down
Clonus: None
�� Jamil: Negative bilaterally�
Cerebellar: Dysmetria/Ataxia: Not tested
Musculoskeletal: Motor: (Manual muscle scale 0-5)�
Muscle SA EF WE EE FF FA HF KE DF EHL PF
Right� 5 5 5 5 5 4 4 4 4 4
Left 5 5 5 5 5 4 4 4 4 4
�
Tone: Normal in all extremities�
Range of Motion: Passively within normal limits in all extremities�
�
Lab Results:
Labs
WBC 8.8 10^3/uL (4.8-10.8) 11/15/24 06:47
RBC 4.93 10^6/uL (4.70-6.10) 11/15/24 06:47
Hgb 14.8 g/dL (13.0-18.0) 11/15/24 06:47
Hct 41.6 % (39.0-52.0) 11/15/24 06:47
MCV 84.4 fL (80.0-94.0) 11/15/24 06:47
MCH 30.0 pg (27.0-31.0) 11/15/24 06:47
MCHC 35.6 g/dL (33.0-37.0) 11/15/24 06:47
RDW 13.2 % (11.5-14.5) 11/15/24 06:47
Plt Count 267 10^3/uL (130-400) 11/15/24 06:47
MPV 8.7 fL (7.4-10.4) 11/15/24 06:47
Abs Immat Gran (auto) 0.1 10^3/uL (0-0.05) H 11/15/24 06:47
Absolute Neuts (auto) 4.8 10^3/uL (1.4-6.5) 11/15/24 06:47
Absolute Lymphs (auto) 2.9 10^3/uL (1.2-3.4) 11/15/24 06:47
Absolute Monos (auto) 0.7 10^3/uL (0.1-0.6) H 11/15/24 06:47
Absolute Eos (auto) 0.3 10^3/uL (0-0.7) 11/15/24 06:47
Absolute Basos (auto) 0.1 10^3/uL (0-0.2) 11/15/24 06:47
Immature Gran % 0.8 % (0-0.5) H 11/15/24 06:47
Neutrophils % 54.2 % (42.2-75.2) 11/15/24 06:47
Lymphocytes % 33.0 % (20.5-51.1) 11/15/24 06:47
Monocytes % 7.5 % (1.7-9.3) 11/15/24 06:47
Eosinophils % 3.8 % (0-6) 11/15/24 06:47
Basophils % 0.7 % (0-2) 11/15/24 06:47
Nucleated RBC % 0 % (-) 11/15/24 06:47
PT 13.1 Sec (11.4-14.6) 11/11/24 18:26
INR 0.95 11/11/24 18:26
APTT 28.0 Sec (23.4-35.0) 11/11/24 18:26
Sodium 140 mmol/L (135-145) 11/15/24 06:47
Potassium 3.8 mmol/L (3.5-5.1) 11/15/24 06:47
Chloride 104 mmol/L (98-107) 11/15/24 06:47
Carbon Dioxide 29 mmol/L (22-30) 11/15/24 06:47
BUN 17 mg/dl (9-20) 11/15/24 06:47
Creatinine 0.9 mg/dL (0.7-1.3) 11/15/24 06:47
Estimated Creat Clear > 125 ml/min 11/15/24 06:47
eGFR > 60.00 11/15/24 06:47
Glucose 101 mg/dl (70-99) H 11/15/24 06:47
Hemoglobin A1c 6.0 % (4.0-5.6) H 11/12/24 06:36
Calcium 9.2 mg/dl (8.4-10.2) 11/15/24 06:47
Total Bilirubin 0.6 mg/dl (0.2-1.3) 11/15/24 06:47
AST 40 U/L (17-59) 11/15/24 06:47
ALT 90 U/L (0-50) H 11/15/24 06:47
Alkaline Phosphatase 54 U/L (38-126) 11/15/24 06:47
Creatine Kinase 85 U/L (55-170) 11/13/24 05:08
Troponin I < 0.012 ng/ml 11/11/24 18:26
Total Protein 6.5 g/dl (6.3-8.2) 11/15/24 06:47
Albumin 4.3 g/dl (3.5-5.0) 11/15/24 06:47
Triglycerides 97 mg/dl (10-149) 11/12/24 06:36
Total Cholesterol 195 mg/dl (50-199) 11/12/24 06:36
LDL Cholesterol, Calc 127 mg/dl 11/12/24 06:36
VLDL Cholesterol, Calc 19 mg/dl (0-30) 11/12/24 06:36
HDL Cholesterol 49 mg/dl 11/12/24 06:36
�
Diagnostic Results:�as per HPI�
Lumbar MRI - 11/12/24
�Chronic degenerative changes of the lumbar spine including degenerative disc disease with multilevel disc bulges/disc protrusions and facet arthrosis.
Mild spinal canal stenosis at L2-L3 and L3-L4.
Moderate to severe left neuroforaminal stenosis at L4-L5 secondary to a left foraminal disc protrusion.
Moderate left lateral recess stenosis and moderate left neuroforaminal stenosis at L5-S1 secondary to a left posterior disc protrusion.
Assessment:
49 y/o M PMH (HTN, HLD, obesity, essential tremors) with bilateral leg weakness/numbness s/p sacral/coccyx injection resulting in ambulatory and ADL dysfunction.
Plan�
PM&R�PT/OT to increase independence with ADLs, improve balance, coordination, endurance, strength, mobility, community reintegration, decreased burden of care on others and family education.�
Ambulatory Dysfunction/lower extremity weakness after coccygeal injection: Overall improving. Still with motor control concerns although strength is improving.
Lumbar disc herniation/Sacral Fx: Had lumbar injections previously. Pain management, PT/OT.
HTN: Losartan 100 mg daily, Amlodipine 10 mg daily, Chlorthalidone 25 mg daily.�
HLD: Not on medicine���
Psych: Psychology consult.� Monitor mood, adjust medications as needed.�
Skin: monitor for pressure sores/rashes/lesions.�
Pain: acetaminophen, IV Dilaudid as needed.�Gabapentin 300 mg bid, could increase to 3 times daily or increased dose to help avoid narcotics. Valium 2 mg twice a day, consider making as needed particularly with lower extremity weakness.
Elevated ALT: 90 - monitor Tylenol consumption
Bowel: Colace and Senna, PRN bisacodyl.�Miralax
Bladder: Time void, PVRs, PRN straight cath.�
DVT Prophylaxis: Mechanical and Lovenox
Pulmonary: Incentive spirometry�
Safety: Continue to reinforce assistance with all transfers.�
Code Status:� Full code
Dispo�(date/plan/equipment needs): Home with family care.� Social history reviewed.�
Functional and Medical Goals:�Modified Independent with ADL�s, ambulation, transfers�
�
SUMMARY
Things that must be addressed in Hospital prior to discharge:�
��� Please consult OT.
��� Patient must be stable on oral pain medications.
�
Discharge Destination:�Would benefit from Acute inpatient rehabilitation to increase independence with ADLs, improve balance, coordination, endurance, strength, mobility, community reintegration, decreased burden of care on others and family
education.�
Attending Statement: Late entry
I saw and examined the patient 11/15/2024. Reviewed care plan with patient, therapy, nursing, and physician anesthesiologists' assistant. I agree with the above subjective and physical exam, and plan as documented by MIKI Baer with adjustments made as necessary.
�
Thank you for allowing me to care for your patient. Please contact me with any questions or concerns.
�
�
Consultation
-
Date/Time Consultation Performed: 11/15/21
Requesting Provider: Dr. Marques Fernando
Performing Provider: Tessy Baer/Dr. Baldemar David
Reason for Consultation: Lower extremity weakness
[2024-11-15 22:44] VITALS: BP 134/83
--- NOTE | 2024-11-16 02:24 | DOWNTIME ---
There was a [employer] Client Client Architect Downtime on 11/16/2024 from 0100 to 11/16/2024 at 0220. Downtime documentation of patient's care, including medication administrations, has been reconciled in the electronic record per guidelines. Refer to the
patient's paper chart under the miscellaneous tab to see printed paper medication records and downtime forms.
[2024-11-16 07:55] VITALS: BP 140/80
[2024-11-16] MEDS: NORVASC 10 MG PO (09:26)
[2024-11-16] MEDS: NEURONTIN 300 MG PO ×2 (09:26→20:30)
[2024-11-16] MEDS: COZAAR 100 MG PO (09:26)
[2024-11-16] MEDS: VALIUM 2 MG PO ×2 (09:27→20:30)
--- NOTE | 2024-11-16 09:36 | CM ---
Addendum entered by Blessing Rivers 11/16/24 15:34:
Leonela from [employer] [phone] ext [phone] called and requested clinicals be sent to her at [phone].
She states she was not notified of hospitalization. CM faxed clinicals to her.
Addendum entered by Blessingmariella Rivers 11/16/24 12:56:
Left Message with Leonela at [employer]
Addendum entered by Blessingmariella Rivers 11/16/24 12:00:
Per Delfina at [facility] - received letter from [employer] [facility]. [facility] - [facility] is not an authorized facility for rehab
she will update patient
tt hospitalist
This CM returned call from Angeli at [facility] [facility] - [phone] ext [phone] to get the list in-network rehabs.
Original Note:
spoke with Delfina from [facility]-patient accepted - she spoke with patient
PM&R consult completed
OT to eval patient today-OT aware
Ron[employer] is his workman's comp insurance
Per Delfina she left message for worker's comp screw machine adjuster automatic & she will obtain authorization
PLAN: [facility], once auth approved from worker's comp & OT eval completed
Report #: [phone]
Fax #: [phone]
--- NOTE | 2024-11-16 13:59 | W.PN.HOSP.TC ---
Today's Communication/Plan
-
medically cleared for discharge to rehab once bed available.
Assessment / Plan
Assessment / Plan
IMPRESSION:
49-year-old with recent lower spine injury involving the lumbar spine as well as the tailbone with resultant to level and dislocation/fracture who presents to the emergency department with bilateral lower extremity weakness has left undergoing
injection of lidocaine and Marcaine injected right into the coccyx coccyx/gluteal area, not near the lumbar area. Patient became aware of symptoms of numbness and weakness several hours after injection at around 4 PM.
MRI lumbar showed chronic degenerative changes of the lumbar spine with degenerative disc disease with multilevel disc bulges/disc protrusion and facet arthrosis.
Assessment/plan:
Bilateral lower extremity weakness and paraesthesias s/p injection
History of multiple disc herniation and posterior displacement of the tip of the coccyx
Weakness has been improving, now able to move his lower extremity
PT yesterday recommended acute rehab, for test case developer aware. Dr[facility] consulted
MRI lumbar showed chronic degenerative changes of the lumbar spine with degenerative disc disease with multilevel disc bulges/disc protrusion and facet arthrosis.
- suspect secondary to spinal injection, no subsequent trauma reported.
-Follows up with Dr. Mcmanus ([facility]) on admission. Please reach out to him tomorrow to see if there is anything else they can offer
valium BID
Leukocytosis likely secondary to injection, stress response
Continue to monitor, resolved
HTN
- continue home losartan, chlorthalidone and losartan
Hyperlipidemia
CODE STATUS: Full code
DVT prophylaxis: Lovenox
Diet: Regular diet.
Disposition: medically cleared for discharge
Communication: Discussed with in the phone.
Total time spent on today's encounter was 55 minutes which included time spent in counseling the patient/family regarding diagnosis and treatment plan as listed above, goals of care, and symptom management. Case was discussed with nursing staff,
specialists, and care coordinators/case management. All labs and imaging personally reviewed by me. Remainder the time spent in detailed review of previous records, lab data, imaging, and other medical provider documentation.
Anticipated Discharge: Today
Subjective/Interval History
-
Date of Service: November 16, 2024
Patient seen and examined at bedside, denies any chest pain or shortness of breath, no abdominal pain, no nausea, no vomiting, no diarrhea or constipation.
Still pending rehab.
Objective Data
-
Vital Signs:
Vital Signs
Temp Pulse Resp BP Pulse Ox
98.3 F 78 16 140/80 98
11/16/24 07:55 11/16/24 07:55 11/16/24 07:55 11/16/24 07:55 11/16/24 07:55
I&O
11/15/24 11/16/24 11/17/24
06:59 06:59 06:59
Intake Total 1240 / 1240 1280 / 1280
Balance 1240 / 1240 1280 / 1280
Physical Exam
-
General: Well Developed, Well Nourished, No Apparent Distress and Comfortable
HEENT: Normocephalic, Atraumatic, Moist Mucous Membranes, No Ptosis, PERRLA and Nose Appears Normal
Respiratory: Clear to Auscultation and Non Labored Respirations
Cardiac: Regular Rhythm and S1/S2
Breast: Deferred by me
GI: Soft, Nontender, Nondistended and Normal Bowel Sounds
Genito-urinary: No Costovertebral Tender
Musculoskeletal: No Clubbing, No Cyanosis and No Edema
Skin: Warm
Neuro: Awake, Alert, Oriented, AO x 3 and Other (Mbilateral lower extremity weakness.)
Psych: Calm
[2024-11-16 15:45] VITALS: BP 149/79
[2024-11-16 23:26] VITALS: BP 136/87
[2024-11-17 07:40] VITALS: BP 136/81
[2024-11-17] MEDS: NEURONTIN 300 MG PO ×2 (08:21→19:36)
[2024-11-17] MEDS: COZAAR 100 MG PO (08:22)
[2024-11-17] MEDS: NORVASC 10 MG PO (08:22)
[2024-11-17] MEDS: VALIUM 2 MG PO ×2 (08:22→19:36)
--- NOTE | 2024-11-17 12:33 | W.PN.HOSP.TC ---
Today's Communication/Plan
-
medically cleared for discharge to rehab once bed available.
Assessment / Plan
Assessment / Plan
IMPRESSION:
49-year-old with recent lower spine injury involving the lumbar spine as well as the tailbone with resultant to level and dislocation/fracture who presents to the emergency department with bilateral lower extremity weakness has left undergoing
injection of lidocaine and Marcaine injected right into the coccyx coccyx/gluteal area, not near the lumbar area. Patient became aware of symptoms of numbness and weakness several hours after injection at around 4 PM.
MRI lumbar showed chronic degenerative changes of the lumbar spine with degenerative disc disease with multilevel disc bulges/disc protrusion and facet arthrosis.
Assessment/plan:
Bilateral lower extremity weakness and paraesthesias s/p injection
History of multiple disc herniation and posterior displacement of the tip of the coccyx
Weakness has been improving, now able to move his lower extremity
PT yesterday recommended acute rehab, for correctional casework specialist aware. Dr[facility]
MRI lumbar showed chronic degenerative changes of the lumbar spine with degenerative disc disease with multilevel disc bulges/disc protrusion and facet arthrosis.
- suspect secondary to spinal injection, no subsequent trauma reported.
-Follows up with Dr. Mcmanus ([facility]) on admission. Please reach out to him tomorrow to see if there is anything else they can offer
valium BID
Leukocytosis likely secondary to injection, stress response
Continue to monitor, resolved
HTN
- continue home losartan, chlorthalidone and losartan
Hyperlipidemia
CODE STATUS: Full code
DVT prophylaxis: Lovenox
Diet: Regular diet.
Disposition: medically cleared for discharge
Communication: Discussed with in the phone.
Total time spent on today's encounter was 55 minutes which included time spent in counseling the patient/family regarding diagnosis and treatment plan as listed above, goals of care, and symptom management. Case was discussed with nursing staff,
specialists, and care coordinators/case management. All labs and imaging personally reviewed by me. Remainder the time spent in detailed review of previous records, lab data, imaging, and other medical provider documentation.
Anticipated Discharge: Today
Subjective/Interval History
-
Date of Service: November 17, 2024
Patient seen and examined at bedside, denies any chest pain or shortness of breath, no abdominal pain, no nausea, no vomiting, no diarrhea or constipation.
Still pending rehab.
Objective Data
-
Vital Signs:
Vital Signs
Temp Pulse Resp BP Pulse Ox
98.6 F 78 16 136/81 96
11/17/24 07:40 11/17/24 07:40 11/17/24 07:40 11/17/24 07:40 11/17/24 07:40
I&O
11/16/24 11/17/24 11/18/24
06:59 06:59 06:59
Intake Total 1280 / 1280 480 / 480
Balance 1280 / 1280 480 / 480
Physical Exam
-
General: Well Developed, Well Nourished, No Apparent Distress and Comfortable
HEENT: Normocephalic, Atraumatic, Moist Mucous Membranes, No Ptosis, PERRLA and Nose Appears Normal
Respiratory: Clear to Auscultation and Non Labored Respirations
Cardiac: Regular Rhythm and S1/S2
Breast: Deferred by me
GI: Soft, Nontender, Nondistended and Normal Bowel Sounds
Genito-urinary: No Costovertebral Tender
Musculoskeletal: No Clubbing, No Cyanosis and No Edema
Skin: Warm
Neuro: Awake, Alert, Oriented, AO x 3 and Other (Mbilateral lower extremity weakness.)
Psych: Calm
Data Reviewed
-
Diagnostic Radiology: Image personally visualized and interpreted and Report Reviewed by me
CT Scan: Image personally visualized and interpreted and Report Reviewed by me
Ultrasound: Image personally visualized and interpreted and Report Reviewed by me
MRI: Image personally visualized and interpreted and Report Reviewed by me
Medical Tests (Nuc Med, Echo etc): Image personally visualized and interpreted and Report Reviewed by me
Labs: Labs Reviewed by me
Old Records: Reviewed
[2024-11-17 13:33] VITALS: BP 134/89; PULSE 99; O2SAT 96
--- NOTE | 2024-11-17 13:59 | PTCARENOTE ---
Report called to [facility]. Waiting for [phone] to be cleaned to be transferred.
[2024-11-17 15:00] VITALS: BP 117/81
--- NOTE | 2024-11-17 15:01 | CM ---
Reviewed the chart notes and spoke with Workers Comp ELLYN Gipson with [employer] [place] ( [phone]). Leonela explained that in order for review of acute rehab would need an order reflecting need for acute rehab along with expected
duration of time. Attending provided and was faxed to Leonela ([phone]). Patient is only able to go to an in-network rehab in [place] due to claim took place in [place]. Per Loenela, she spoke with the patient's finishing operator and patient is agreeable to
[facility]. Referral sent in [facility]. Voice message left for patient to update on discharge plan. CM continues to be available to patient/family and is monitoring medical plan for needs at discharge.
Plan: Discharge to acute rehab once bed secured and auth obtained.
[2024-11-17 23:17] VITALS: BP 154/88
[2024-11-18 07:15] VITALS: BP 160/94
[2024-11-18] MEDS: COZAAR 100 MG PO (08:02)
[2024-11-18] MEDS: NORVASC 10 MG PO (08:02)
[2024-11-18] MEDS: VALIUM 2 MG PO ×2 (08:02→20:10)
[2024-11-18] MEDS: NEURONTIN 300 MG PO ×2 (08:02→20:10)
[2024-11-18 08:15] VITALS: BP 160/94
--- NOTE | 2024-11-18 10:54 | W.PN.HOSP.TC ---
Today's Communication/Plan
-
medically cleared for discharge to rehab once bed available.
Assessment / Plan
Assessment / Plan
IMPRESSION:
49-year-old with recent lower spine injury involving the lumbar spine as well as the tailbone with resultant to level and dislocation/fracture who presents to the emergency department with bilateral lower extremity weakness has left undergoing
injection of lidocaine and Marcaine injected right into the coccyx coccyx/gluteal area, not near the lumbar area. Patient became aware of symptoms of numbness and weakness several hours after injection at around 4 PM.
MRI lumbar showed chronic degenerative changes of the lumbar spine with degenerative disc disease with multilevel disc bulges/disc protrusion and facet arthrosis.
Assessment/plan:
Bilateral lower extremity weakness and paraesthesias s/p injection
History of multiple disc herniation and posterior displacement of the tip of the coccyx
Weakness has been improving, now able to move his lower extremity
PT yesterday recommended acute rehab, for special education case manager aware. [facility]
MRI lumbar showed chronic degenerative changes of the lumbar spine with degenerative disc disease with multilevel disc bulges/disc protrusion and facet arthrosis.
- suspect secondary to spinal injection, no subsequent trauma reported.
-Follows up with Dr. Mmcanus ([facility]) on admission. Please reach out to him tomorrow to see if there is anything else they can offer
valium BID
Leukocytosis likely secondary to injection, stress response
Continue to monitor, resolved
HTN
- continue home losartan, chlorthalidone and losartan
Hyperlipidemia
CODE STATUS: Full code
DVT prophylaxis: Lovenox
Diet: Regular diet.
Disposition: medically cleared for discharge
Communication: Discussed with in the phone.
Total time spent on today's encounter was 55 minutes which included time spent in counseling the patient/family regarding diagnosis and treatment plan as listed above, goals of care, and symptom management. Case was discussed with nursing staff,
specialists, and care coordinators/case management. All labs and imaging personally reviewed by me. Remainder the time spent in detailed review of previous records, lab data, imaging, and other medical provider documentation.
Anticipated Discharge: Today
Subjective/Interval History
-
Date of Service: November 18, 2024
Patient seen and examined at bedside, discussed with at bedside. Patient denies any chest pain or shortness of breath, no abdominal pain, no nausea, no vomiting, no diarrhea or constipation.
Still pending rehab.
Objective Data
-
Vital Signs:
Vital Signs
Temp Pulse Resp BP Pulse Ox
98 F 77 16 160/94 98
11/18/24 07:15 11/18/24 07:15 11/18/24 07:15 11/18/24 08:02 11/18/24 08:00
I&O
11/17/24 11/18/24 11/19/24
06:59 06:59 06:59
Intake Total 960 / 960
Balance 960 / 960
Physical Exam
-
General: Well Developed, Well Nourished, No Apparent Distress and Comfortable
HEENT: Normocephalic, Atraumatic, Moist Mucous Membranes, No Ptosis, PERRLA and Nose Appears Normal
Respiratory: Clear to Auscultation and Non Labored Respirations
Cardiac: Regular Rhythm and S1/S2
Breast: Deferred by me
GI: Soft, Nontender, Nondistended and Normal Bowel Sounds
Genito-urinary: No Costovertebral Tender
Musculoskeletal: No Clubbing, No Cyanosis and No Edema
Skin: Warm
Neuro: Awake, Alert, Oriented, AO x 3 and Other (Mbilateral lower extremity weakness.)
Psych: Calm
Data Reviewed
-
Diagnostic Radiology: Image personally visualized and interpreted and Report Reviewed by me
CT Scan: Image personally visualized and interpreted and Report Reviewed by me
Ultrasound: Image personally visualized and interpreted and Report Reviewed by me
MRI: Image personally visualized and interpreted and Report Reviewed by me
Medical Tests (Nuc Med, Echo etc): Image personally visualized and interpreted and Report Reviewed by me
Labs: Labs Reviewed by me
Old Records: Reviewed
[2024-11-18] MEDS: TORADOL 30 MG IV (13:42)
--- NOTE | 2024-11-18 13:52 | CM ---
CM reviewed chart, patient seen bedside with , discussed authorization approved by workers comp (Leonela, Ronit [phone] ext [phone]) to [facility]. Patient will require ambulance transport upon discharge. Authorization
information received via fax from Leonela- spoke with Marielos from [facility] [phone], auth information provided via [employer] CM will continue to follow for all discharge planning needs.
Plan; [facility] auth approved for tomorrow 11/19
[2024-11-18 15:05] VITALS: BP 137/79
[2024-11-18 23:06] VITALS: BP 151/92
[2024-11-19 07:28] VITALS: BP 153/96
[2024-11-19] MEDS: NORVASC 10 MG PO (09:04)
[2024-11-19] MEDS: COZAAR 100 MG PO (09:04)
[2024-11-19] MEDS: NEURONTIN 300 MG PO (09:05)
[2024-11-19] MEDS: VALIUM 2 MG PO (09:05)
--- NOTE | 2024-11-19 09:09 | CM ---
Addendum entered by Tessa Sanchez 11/19/24 13:44:
Ambulance transport arranged for 5:30pm poultry picking machine tender.
Claudia Report: [phone]
Claudia
Original Note:
Pt cleared for discharge to [facility] today. Ambulance transport to be coordinated.
--- NOTE | 2024-11-19 11:13 | W.PN.HOSP.TC ---
Today's Communication/Plan
-
Discharge to rehab
Assessment / Plan
Assessment / Plan
IMPRESSION:
49-year-old with recent lower spine injury involving the lumbar spine as well as the tailbone with resultant to level and dislocation/fracture who presents to the emergency department with bilateral lower extremity weakness has left undergoing
injection of lidocaine and Marcaine injected right into the coccyx coccyx/gluteal area, not near the lumbar area. Patient became aware of symptoms of numbness and weakness several hours after injection at around 4 PM.
MRI lumbar showed chronic degenerative changes of the lumbar spine with degenerative disc disease with multilevel disc bulges/disc protrusion and facet arthrosis.
Seen by physical therapy recommended rehab, patient will be discharged to rehab today.
Assessment/plan:
Bilateral lower extremity weakness and paraesthesias s/p injection
History of multiple disc herniation and posterior displacement of the tip of the coccyx
Weakness has been improving, now able to move his lower extremity
PT yesterday recommended acute rehab, for pillowcase cutter aware. [facility] consulted
MRI lumbar showed chronic degenerative changes of the lumbar spine with degenerative disc disease with multilevel disc bulges/disc protrusion and facet arthrosis.
- suspect secondary to spinal injection, no subsequent trauma reported.
-Follows up with Dr. Mcmanus ([facility]) on admission. Please reach out to him tomorrow to see if there is anything else they can offer
valium BID
Leukocytosis likely secondary to injection, stress response
Continue to monitor, resolved
HTN
- continue home losartan, chlorthalidone and losartan
Hyperlipidemia
CODE STATUS: Full code
DVT prophylaxis: Lovenox
Diet: Regular diet.
Disposition: medically cleared for discharge
Communication: Discussed with in the phone.
Total time spent on today's encounter was 55 minutes which included time spent in counseling the patient/family regarding diagnosis and treatment plan as listed above, goals of care, and symptom management. Case was discussed with nursing staff,
specialists, and care coordinators/case management. All labs and imaging personally reviewed by me. Remainder the time spent in detailed review of previous records, lab data, imaging, and other medical provider documentation.
Anticipated Discharge: Today
Subjective/Interval History
-
Date of Service: November 19, 2024
Patient seen and examined at bedside, discussed with at bedside. Patient denies any chest pain or shortness of breath, no abdominal pain, no nausea, no vomiting, no diarrhea or constipation.
Dc to rehab today.
Objective Data
-
Vital Signs:
Vital Signs
Temp Pulse Resp BP Pulse Ox
98.3 F 67 20 153/96 97
11/19/24 07:28 11/19/24 07:28 11/19/24 07:28 11/19/24 09:04 11/19/24 07:28
I&O
11/18/24 11/19/24 11/20/24
06:59 06:59 06:59
Intake Total 960 / 960
Balance 960 / 960
Physical Exam
-
General: Well Developed, Well Nourished, No Apparent Distress and Comfortable
HEENT: Normocephalic, Atraumatic, Moist Mucous Membranes, No Ptosis, PERRLA and Nose Appears Normal
Respiratory: Clear to Auscultation and Non Labored Respirations
Cardiac: Regular Rhythm and S1/S2
Breast: Deferred by me
GI: Soft, Nontender, Nondistended and Normal Bowel Sounds
Genito-urinary: No Costovertebral Tender
Musculoskeletal: No Clubbing, No Cyanosis and No Edema
Skin: Warm
Neuro: Awake, Alert, Oriented, AO x 3 and Other (Mbilateral lower extremity weakness.)
Psych: Calm
--- NOTE | 2024-11-19 11:18 | W.DCSUMMARY ---
Discharge Summary
Discharge Data
Date of Admission: 11/18/24
Date of Discharge: 11/19/24
Total time spent discharging patient (in min): 40
-
Pending Results: No
Hospital Course
Hospital course
49-year-old with recent lower spine injury involving the lumbar spine as well as the tailbone with resultant to level and dislocation/fracture who presents to the emergency department with bilateral lower extremity weakness has left undergoing
injection of lidocaine and Marcaine injected right into the coccyx coccyx/gluteal area, not near the lumbar area. Patient became aware of symptoms of numbness and weakness several hours after injection at around 4 PM.
MRI lumbar showed chronic degenerative changes of the lumbar spine with degenerative disc disease with multilevel disc bulges/disc protrusion and facet arthrosis.
Seen by physical therapy recommended rehab, patient will be discharged to rehab today.
During hospitalization patient was treated from the following
Bilateral lower extremity weakness and paraesthesias s/p injection
History of multiple disc herniation and posterior displacement of the tip of the coccyx
Weakness has been improving, now able to move his lower extremity
PT yesterday recommended acute rehab, for hospice case manager aware. Dr[facility]
MRI lumbar showed chronic degenerative changes of the lumbar spine with degenerative disc disease with multilevel disc bulges/disc protrusion and facet arthrosis.
- suspect secondary to spinal injection, no subsequent trauma reported.
-Follows up with Dr. Mcmanus ([facility]) on admission. Please reach out to him tomorrow to see if there is anything else they can offer
valium BID
Leukocytosis likely secondary to injection, stress response
Continue to monitor, resolved
HTN
- continue home losartan, chlorthalidone and losartan
Hyperlipidemia
CODE STATUS: Full code
DVT prophylaxis: Lovenox
Diet: Regular diet.
Disposition: medically cleared for discharge
Communication: Discussed with in the phone and at bedside.
Total time spent on today's encounter was 40 minutes which included time spent in counseling the patient/family regarding diagnosis and treatment plan as listed above, goals of care, and symptom management. Case was discussed with nursing staff,
specialists, and care coordinators/case management. All labs and imaging personally reviewed by me. Remainder the time spent in detailed review of previous records, lab data, imaging, and other medical provider documentation.
Anticipated Discharge: Today
Discharge Plan
-
Patient Disposition: Acute Rehab Facility
Discharge Diagnosis/Procedures: Bilateral lower extremity weakness and paraesthesias s/p injection
Diet: As tolerated and Regular
Activity: With assistance and As tolerated
Referrals:
Jane Brothers DO [Family Provider]
Prescriptions:
Continued
psyllium 500 mg Capsule
0.52 g PO HS
atorvastatin 10 mg Tablet
10 mg PO HS
ibuprofen 800 mg Tablet
800 mg PO BIDPRN PRN (Reason: pain)
chlorthalidone 25 mg Tablet
25 mg PO DAILY
tramadol 50 mg Tablet
50 mg PO Q8H PRN (Reason: spasms)
amlodipine 10 mg Tablet
10 mg PO DAILY
gabapentin 300 mg Capsule
300 mg PO BID
losartan 100 mg Tablet
100 mg PO DAILY
omega-3 fatty acids Capsule
1,000 mg PO DAILY
tizanidine 4 mg Capsule
4 mg PO BID PRN (Reason: spasms)
ie-sco-XE-Mf-Ko-obbxjob-lutein 0.4-162-18 mg Tablet
1 tab PO DAILY
cholecalciferol (vitamin D3) [Vitamin D3] 125 mcg (5,000 unit) Tablet
125 mcg PO DAILY
loratadine 10 mg Capsule
10 mg PO DAILY
Glucosamine Chondroitin tablet
PO DAILY
Patient Comments:
3 tabs @[facility]
Rx Instructions:
Glucosamine 250mg Chondroitin 200mg, confirmed with pt
ascorbic acid (vitamin C)
1,000 tab PO DAILY
Discharge Orders:
Discharge Patient (As Directed); Ordered 07/23/25
Ordered By: Maxx Thayer
Discharge Date and Time
Print Language: ECUADOREAN
[2024-11-19] MEDS: TORADOL 30 MG IV (12:01)
[2024-11-19 15:00] VITALS: BP 114/58
--- NOTE | 2024-11-19 17:13 | PTCARENOTE ---
attempt to call to give report x2, no answer. ELLYN Sanchez notified of no answer when calling [phone]
== END 2024-11-19 17:59 | DRG 812 ==
LOC: 4 WEST ACU 08:10
PROVIDERS: Emergency Medicine; Internal Medicine; ADMITTING PHYSICIAN Internal Medicine; ATTENDING PHYSICIAN General Practice; CONSULT PHYSICIAN Physical Medicine & Rehabilitation; EMERGENCY PHYSICIAN Emergency Medicine; FAMILY PHYSICIAN Family Medicine
DX: T80.89XA Other complications following infusion, transfusion and therapeutic injection, initial encounter (principal); R53.1 Weakness; E78.00 Pure hypercholesterolemia, unspecified; I10 Essential (primary) hypertension; R20.0 Anesthesia of skin; R20.2 Paresthesia of skin; E66.9 Obesity, unspecified; S32.2XXD Fracture of coccyx, subsequent encounter for fracture with routine healing; W19.XXXD Unspecified fall, subsequent encounter; M51.26 Other intervertebral disc displacement, lumbar region; D72.829 Elevated white blood cell count, unspecified; M53.3 Sacrococcygeal disorders, not elsewhere classified; M47.816 Spondylosis without myelopathy or radiculopathy, lumbar region; G25.0 Essential tremor; Y84.8 Other medical procedures as the cause of abnormal reaction of the patient, or of later complication, without mention of misadventure at the time of the procedure; Y92.9 Unspecified place or not applicable; Z87.891 Personal history of nicotine dependence; Z98.1 Arthrodesis status; Z68.34 Body mass index [BMI] 34.0-34.9, adult; Z82.0 Family history of epilepsy and other diseases of the nervous system; Z82.49 Family history of ischemic heart disease and other diseases of the circulatory system
CPT/HCPCS: 72158; 80048; 80053; 80061; 82550; 83036; 84484; 85025; 85027; 85610; 85730; 93005; 97116; 97163; 97167; 97530; 97535; 99283; A9575

== ENCOUNTER → 2025-04-12 07:36 | Outpatient (REF) | payer OTHER, SELFPAY | LOC: PAVMRI 07:36 | PROVIDERS: ATTENDING PHYSICIAN Psychiatry & Neurology Clinical Neurophysiology; FAMILY PHYSICIAN Family Medicine | DX: G83.4 Cauda equina syndrome (principal) | CPT/HCPCS: 72158; A9575 ==